=== PATIENT | female | born 1990 | race Caucasian/White ===

== ENCOUNTER 2023-10-25 10:58 | Emergency (ER) | payer OTHER, SELFPAY ==
[2023-10-25 11:09] VITALS: BP 132/83
[2023-10-25 11:24] LABS: % Basophils 0.3 % (0-2); % Eosinophils 0.9 % (0-6); % Immature Granulocytes 0.2 % (0-0.5); % Lymphocytes 16.5 % (20.5-51.1); % Monocytes 10.4 % (1.7-9.3); % Neutrophils 71.7 % (42.2-75.2); Absolute Eosinophils 0.1 10^3/uL (0-0.7); Absolute Monocytes 0.6 10^3/uL (0.1-0.6); Absolute Neutrophils 4.1 10^3/uL (1.4-6.5); Hematocrit 38.8 % (37.0-47.0); Hemoglobin 12.8 g/dL (12.0-16.0); Mean Corpuscular Hgb 24.6 pg (27.0-31.0); Mean Corpuscular Volume 74.6 fL (81.0-99.0); Mean Platelet Volume 9.9 fL (7.4-10.4); Nucleated Red Blood Cells % 0 %; Platelet Count 251 10^3/uL (130-400); Red Cell Dist. Width 14.4 % (11.5-14.5); White Blood Cell Count 5.8 10^3/uL (4.8-10.8)
[2023-10-25 11:38] LABS: HCG, Serum Qualitative Screen Negative
[2023-10-25 11:39] LABS: ALT (SGPT) 53 U/L (0-35); AST (SGOT) 37 U/L (14-36); Albumin 4.3 g/dl (3.5-5.0); Alkaline Phosphatase 70 U/L (38-126); Blood Urea Nitrogen 11 mg/dl (7-17); Calcium 9.2 mg/dl (8.4-10.2); Carbon Dioxide 22 mmol/L (22-30); Chloride 105 mmol/L (98-107); Glucose 120 mg/dl (70-99); Potassium 4.1 mmol/L (3.5-5.1); Sodium 135 mmol/L (135-145); Total Bilirubin 0.3 mg/dl (0.2-1.3); Total Protein 7.1 g/dl (6.3-8.2); eGFR > 60.00
[2023-10-25 12:03] LABS: COVID-19 Antigen Negative (Negative)
--- NOTE | 2023-10-25 12:11 | ED.GENMED ---
History of Present Illness
General
Chief Complaint: Fever
Source: patient and spouse
Time Seen by Provider: 10/25/23 11:59
History of Present Illness
History of Present Illness:
33-year-old female who states that she first developed a fever on Monday Tmax of 103.2 associated with discomfort along the right inferior aspect of the lateral costal area particularly with deep breath. No shortness of breath. She does note mild
nausea but denies vomiting. She is mildly anorexic. Earlier in the week she did have a headache but this is resolved. She denies photophobia or nuchal rigidity, cough. She has a slight sore throat. She denies lower abdominal pain, urinary
symptoms. Her bowel movements have been normal without blood. She denies rash. She states that her child had strep last week, otherwise no sick contacts.
Past History
Past History
ED Past Medical History: None
ED Past Surgical History: Gynecological
Social History
Tobacco: Non-smoker
Alcohol: Occasional
Drug: None
Personal:
Living: with family
Phy Exam
Physical Exam
Physical Exam:
GENERAL: Alert , in no apparent distress, nontoxic, overall well-appearing
EYE: pupils equal and reactive, no photophobia
NECK: Supple, no significant adenopathy, [place] no spontaneously and easily.
ENT: o/p clr, mmm, no exudate, no trismus, no drool, voice clear.
CARDIAC: Regular rate and rhythm .
LUNGS: Clear breath sounds bilaterally, no acute respiratory distress, no wheezes/rales/rhonchi, no rash noted on thorax, no swelling skin changes
ABDOMEN: Soft, without focal tenderness, no r/g, no cvat
NEUROLOGICAL: Alert and oriented, no focal neuro deficits
SKIN: Warm and dry, skin intact.
MUSCULOSKELETAL: No edema, well perfused.
PSYCH: Normal and appropriate interaction.
Course
Orders/Labs/Results
Orders:
Orders
10/25/23 11:12
Test Result ONCE
10/25/23 11:15
CMP [Comprehensive Metabolic Panel] Urgent
COVID-19 Antigen Urgent
Source: Nasal Swab
Complete Blood Count/With Diff Urgent
HCG, Serum Qualitative Screen Urgent
Influenza A+B Rapid Molecular Urgent
SONA Source: Nasal Swab
Specimen Description:
10/25/23 11:59
CR Chest - 2 Views Urgent
Comment:
Reason For Exam: fever, pain
10/25/23 12:45
Rapid Strep Group A Stat
SONA Source: Throat/Pharynx
Specimen Description:
Date Specimen was Collected: 10/25/23
Time Specimen was Collected: 12:36
10/25/23 13:06
Urinalysis Reflex To Culture Urgent
Date Specimen was Collected: 10/25/23
Time Specimen was Collected: 13:03
Urine Microscopic Reflex Cult Urgent
Abnormal Lab Results
10/25/23 10/25/23
11:15 13:06
MCV 74.6 L fL
(81.0-99.0)
MCH 24.6 L pg
(27.0-31.0)
Absolute Lymphs (auto) 1.0 L 10^3/uL
(1.2-3.4)
Lymphocytes % 16.5 L %
(20.5-51.1)
Monocytes % 10.4 H %
(1.7-9.3)
Glucose 120 H mg/dl
(70-99)
AST 37 H U/L
(14-36)
ALT 53 H U/L
(0-35)
Urine Ketones 1+ A
(Negative)
Ur Occult Blood Reflex 1+ A
(Negative)
10/25/23 11:15
10/25/23 11:15
Vital Signs
Initial and Last Documented VS:
Initial Vital Signs
Temp Pulse Resp BP Pulse Ox
99.7 F 115 16 132/83 99
10/25/23 11:09 10/25/23 11:09 10/25/23 11:09 10/25/23 11:09 10/25/23 11:09
Last Documented Vital Signs
Temp Pulse Resp BP Pulse Ox
99.7 F 115 16 132/83 99
10/25/23 11:09 10/25/23 11:09 10/25/23 11:09 10/25/23 11:09 10/25/23 11:09
Update Note
Update Note:
Patient presents to the Emergency Department with _fever and right lower thorax pain
Number and Complexity of Problems Addressed at the Encounter
� Chronic conditions affecting care:
� Acute Exacerbation and/or Progression of Chronic Illness:
� Differential Diagnosis includes: But not limited to nonspecific viral infection, COVID, flu, strep, pleurisy, pneumonia, etc.
Amount and/or Complexity of Data to be Reviewed and Analyzed
� I performed an independent evaluation of and my interpretation is:
EKG:
CT:
Xrays: cxr small R pleural effusion, can not r/o underlying pna
Laboratory Studies:
Other:
� Review of other/old records reveals:
� Clinical information was obtained by an independent historian: who is bedside
� Prescriptions/Medications Considered but not given:
� Further testing considered but not performed:
Risk of Complications and/or Morbidity or Mortality of Patient Management
� Social determinants of health affecting care:
� Discussion with other providers (PCP, Hospitalists, Consultants, etc):
� Escalation of care including admission/observation vs risk of discharge considered: pt eating food, smiling, nontoxic, in nad. R pleural effsuion noted, suspect cause of her pleuritic cp and fever, r/o underlying pna. WIll rx
for CAP, and recommend close f/u.
ED Attending Note
-
Portions of this chart may have been created with voice recognition software.� Occasional wrong word or��sound alike� substitutions may have occurred due to the inherent limitations of voice recognition software.
Discharge Plan
Departure
Patient Disposition: Home (Routine Discharge)
Date of Disposition: 10/25/23
Time of Disposition: 13:52
Patient with high blood pressure during this ER visit?: Yes
Condition: Good
Discharge Problem:
Fever
Instructions: Pleural effusion, Fever, Adult (DC), BLOOD PRESSURE
Prescriptions:
New
doxycycline hyclate 100 mg capsule
100 mg PO BID Qty: 20 0RF
Referrals:
Lenora Hollingsworth MD [Family Provider] - Follow up in 2-3 days
Activity Restrictions/Additional Instructions:
YOU HAVE A RIGHT SIDED PLEURAL EFFUSION,AND WE SUSPECT YOU MAY HAVE PNEUMONIA. TAKE THE ANTIBIOTICS DIRECTED. IF YOU DEVELOP INCREASING/NEW PAIN, TROUBLE BREAHTING, PERSISTENT FEVER, VOMITING, ABDOMINAL PAIN, OR OTHER WORRISOME SIGNS, GO TO THE
ER IMMEDIATELY!
Interventions
Interventions:
*Risk Screen - Suicide Last Done: 10/25/23 13:24
*General Assessment Last Done: 10/25/23 11:09
*Neglect/Abuse Screening Last Done: 10/25/23 13:24
*ED COVID-19 Vaccine History Last Done: 10/25/23 11:09
ED- Neurological Assessment Last Done: 10/25/23 13:25
ED-Skin Assessment Last Done: 10/25/23 13:25
Discharge Date and Time
Print Language: INDONESIAN
[2023-10-25 13:44] LABS: Urine Albumin Trace (Neg - Trace); Urine Bilirubin Negative (Negative); Urine Character Clear (Clear); Urine Color Yellow; Urine Glucose Negative (Negative); Urine Ketone 1+ (Negative); Urine Leukocyte Negative (Negative); Urine Nitrite Negative (Negative); Urine Occult Blood 1+ (Negative); Urine Specific Gravity 1.015 (<1.030); Urine Urobilinogen Negative (Neg - 1+)
[2023-10-25 14:05] LABS: Urine Red Blood Cell 0-2 /HPF (0-2)
[2023-10-25 14:06] LABS: Urine Mucus Few; Urine White Cell 0-2 /HPF (0-5)
[2023-10-25] MEDS: VIBRAMYCIN 100 MG PO (14:11)
[2023-10-25 14:21] VITALS: BP 121/81
[2023-10-25 14:23] VITALS: BP 121/81
== END 2023-10-25 14:24 | disposition home or self-care (01) ==
LOC: EMR 10:58
PROVIDERS: EMERGENCY PHYSICIAN Emergency Medicine; FAMILY PHYSICIAN Internal Medicine
DX: R50.9 Fever, unspecified (principal)
CPT/HCPCS: 99283; 71046; 80053; 81003; 81015; 84703; 85025; 87070; 87502; 87811; 87880

== ENCOUNTER 2023-10-26 11:12 | Emergency (ER) | payer OTHER, SELFPAY ==
[2023-10-26 11:43] VITALS: BMI 20.2
[2023-10-26 11:44] VITALS: BP 119/94
[2023-10-26 12:00] VITALS: BP 106/76
[2023-10-26 13:00] VITALS: BP 114/81
--- NOTE | 2023-10-26 13:01 | ED.GENMED ---
History of Present Illness
General
Chief Complaint: Breathing Problem
Time Seen by Provider: 10/26/23 11:32
History of Present Illness
History of Present Illness:
33-year-old female presenting with right lateral pleuritic chest pain with shortness of breath, cough, fever, and right sided headache. Pt states symptoms started on Saturday 10/21. Pt states she was evaluated in the emergency department yesterday,
diagnosed with right sided pneumonia and discharged with doxycycline. Pt states she took the first 2 doses as prescribed. Pt reports increased shortness of breath and gradual onset right sided headache last night which has since improved but
prompted ED arrival. Pt denies fever last night but notes she was sweaty. Pt states her son was diagnosed with strep recently. Otherwise pt denies lower extremity swelling, use of hormone products, history of DVT/PE, or recent long
travel/immobilization/surgery. Pt states symptoms spontaneously improved this morning with no further treatment.
Past History
Past History
ED Past Medical History: None
ED Past Surgical History: Gynecological
Social History
Tobacco: Non-smoker
Alcohol: Occasional
Drug: None
Personal:
Living: with family
Phy Exam
Physical Exam
Physical Exam:
General: Alert, no acute distress, well appearing eating wrap
Head: NCAT
Eyes: clear conjunctiva, EOMI, PERRLA
Neck: supple, FROM
Cardiac: regular rate and rhythm, no murmur
Lungs: clear to auscultation bilaterally. No wheezes, rales, or rhonchi. Speaking full unlabored sentences. No respiratory distress.
Chest wall: right lower posterolateral chest wall tenderness to palpation. No overlying rash
Abdomen: soft, nondistended nontender. No rebound or guarding. no CVA tenderness bilaterally
MSK: no lower extremity edema bilaterally. No deformity
Skin: warm, dry
Neuro: Alert and oriented x3. CN II-XII with no focal deficits. 5/5 strength bilateral upper and lower extremities. Normal finger to nose. Sensation intact.
Scores
PERC Rule Criteria
Age <50 years: Yes
HR <100 bpm: Yes
Room air oxygen sat >94%: Yes
History of DVT or PE: No
Recent trauma or surgery: No
Hemoptysis: No
Exogenous estrogen: No
Clinical signs suggestive of DVT: No
: No
Considered low risk for PE: Yes
PERC Score: 0
PE can be excluded by PERC: Yes
Course
Orders/Labs/Results
Orders:
Orders
10/26/23 12:59
0.9% Sodium Chloride 1000 ml [Nss] 1,000 ml IV BOLUS
Ketorolac [Toradol] 15 mg IV NOW STA
10/26/23 13:14
CBC/With Diff [Complete Blood Count/With Diff] Urgent
CMP [Comprehensive Metabolic Panel] Urgent
Abnormal Lab Results
10/26/23
13:14
MCV 75.5 L fL
(81.0-99.0)
MCH 24.9 L pg
(27.0-31.0)
MCHC 32.9 L g/dL
(33.0-37.0)
RDW 14.6 H %
(11.5-14.5)
Absolute Monos (auto) 0.7 H 10^3/uL
(0.1-0.6)
Lymphocytes % 20.3 L %
(20.5-51.1)
Monocytes % 10.8 H %
(1.7-9.3)
Glucose 120 H mg/dl
(70-99)
ALT 38 H U/L
(0-35)
10/26/23 13:14
10/26/23 13:14
Vital Signs
Initial and Last Documented VS:
Initial Vital Signs
Pulse Ox
100
10/26/23 11:43
Last Documented Vital Signs
Pulse Resp BP Pulse Ox
86 20 102/70 100
10/26/23 14:30 10/26/23 14:30 10/26/23 14:00 10/26/23 14:30
MDM/Problems Addressed
MDM/Problems Addressed:
Patient presents to the Emergency Department with headache, right pleuritic chest pain, cough, shortness of breath
Number and Complexity of Problems Addressed at the Encounter
� Chronic conditions affecting care:
� Acute Exacerbation and/or Progression of Chronic Illness:
� Differential Diagnosis includes: costochondritis, pneumonia. Low suspicion for PE given PERC negative. Low suspicion for meningitis given well appearing, FROM neck with no meningeal signs, neurologically intact, headache improved.
Amount and/or Complexity of Data to be Reviewed and Analyzed
� I performed an independent evaluation of and my interpretation is:
EKG:
CT:
Xrays:
Laboratory Studies: wBC 6.3, no left shift. LFTs improved from yesterday
Other:
� Review of other/old records reveals: pt seen and evaluated in ER yesterday. cXR showed small right pleural effusion. Patient started on doxycycline for possible CAP. Otherwise UA negative for UTI
� Clinical information was obtained by an independent historian:
� Prescriptions/Medications Considered but not given:
� Further testing considered but not performed:
Risk of Complications and/or Morbidity or Mortality of Patient Management
� Social Determinants of health affecting care:
� Discussion with other providers (PCP, Hospitalists, Consultants, etc):
� Escalation of care including admission/observation vs risk of discharge considered: 33yoF presenting with right pleuritic lower posterolateral chest wall pain starting last night. Reproducible tenderness to palpation. Pt just started on
doxycycline yesterday, only has taken 2 doses. No fever last night. Vitals stable. Labs reviewed, improving LFTs otherwise within normal limits. Discussed results with patient at bedside. Reports improvement in symptoms. Stable for discharge home
with PCP follow, advised to continue taking doxycycline as prescribed
*Critical Care Note
Total Time (30-74mins, 75-104mins- exclusive of procedures): Not Applicable
ED Attending Note
-
Portions of this chart may have been created with voice recognition software.� Occasional wrong word or��sound alike� substitutions may have occurred due to the inherent limitations of voice recognition software.
Discharge Plan
Departure
Patient Disposition: Home (Routine Discharge)
Date of Disposition: 10/26/23
Time of Disposition: 14:14
Patient with high blood pressure during this ER visit?: No
Discharge Problem:
Acute costochondritis
Instructions: Costochondritis
Prescriptions:
No Action
doxycycline hyclate 100 mg capsule
100 mg PO BID Qty: 20 0RF
Referrals:
Lenora Hollingsworth MD [Family Provider] -
Activity Restrictions/Additional Instructions:
Take Tylenol 975mg every 6 hours and/or ibuprofen 800mg every 8 hours with food as needed for pain
Continue taking doxycycline as prescribed
Follow up with primary care doctor in 1-2 days
Return to the emergency department for new/worsening symptoms
Interventions
Interventions:
*Risk Screen - Suicide Last Done: 10/26/23 11:43
*General Assessment Last Done: 10/26/23 11:43
*Neglect/Abuse Screening Last Done: 10/26/23 11:43
ED- Fall Risk Assessment Last Done: 10/26/23 11:43
*ED COVID-19 Vaccine History Last Done: 10/26/23 11:43
*Nursing Disposition Last Done: 10/26/23 14:41
ED- Cardiac Assessment Last Done: 10/26/23 11:43
ED- Pulmonary Assessment Last Done: 10/26/23 11:43
Discharge Date and Time
Discharge Date/Time: 10/26/23 14:42
Print Language: SWEDISH
[2023-10-26] MEDS: TORADOL 15 MG IV (13:14)
[2023-10-26] MEDS: NSS 1000 IV (13:15)
[2023-10-26 13:27] LABS: % Basophils 0.8 % (0-2); % Eosinophils 1.7 % (0-6); % Immature Granulocytes 0.3 % (0-0.5); % Lymphocytes 20.3 % (20.5-51.1); % Monocytes 10.8 % (1.7-9.3); % Neutrophils 66.1 % (42.2-75.2); Absolute Basophils 0.1 10^3/uL (0-0.2); Absolute Eosinophils 0.1 10^3/uL (0-0.7); Absolute Lymphocytes 1.3 10^3/uL (1.2-3.4); Absolute Monocytes 0.7 10^3/uL (0.1-0.6); Absolute Neutrophils 4.2 10^3/uL (1.4-6.5); Hemoglobin 12.5 g/dL (12.0-16.0); Mean Corp Hgb Conc. 32.9 g/dL (33.0-37.0); Mean Corpuscular Hgb 24.9 pg (27.0-31.0); Mean Corpuscular Volume 75.5 fL (81.0-99.0); Mean Platelet Volume 10.1 fL (7.4-10.4); Nucleated Red Blood Cells % 0 %; Platelet Count 276 10^3/uL (130-400); Red Blood Cell Count 5.03 10^6/uL (4.20-5.40); Red Cell Dist. Width 14.6 % (11.5-14.5); White Blood Cell Count 6.3 10^3/uL (4.8-10.8)
[2023-10-26 13:58] LABS: ALT (SGPT) 38 U/L (0-35); AST (SGOT) 25 U/L (14-36); Albumin 4.1 g/dl (3.5-5.0); Alkaline Phosphatase 70 U/L (38-126); Blood Urea Nitrogen 11 mg/dl (7-17); Calcium 9.2 mg/dl (8.4-10.2); Carbon Dioxide 25 mmol/L (22-30); Chloride 104 mmol/L (98-107); Estimated Creatinine Clearance 115 ml/min; Glucose 120 mg/dl (70-99); Potassium 4.5 mmol/L (3.5-5.1); Sodium 137 mmol/L (135-145); Total Bilirubin 0.4 mg/dl (0.2-1.3); Total Protein 7.1 g/dl (6.3-8.2); eGFR > 60.00
[2023-10-26 14:00] VITALS: BP 102/70
== END 2023-10-26 14:42 | disposition home or self-care (01) ==
LOC: EMR 11:12
PROVIDERS: EMERGENCY PHYSICIAN Emergency Medicine; FAMILY PHYSICIAN Internal Medicine
DX: M94.0 Chondrocostal junction syndrome [Tietze] (principal)
CPT/HCPCS: 99284; 96374; 96361; 80053; 85025

== ENCOUNTER → 2023-12-13 13:08 | Outpatient (REF) | payer OTHER, SELFPAY | LOC: RAD 13:08 | PROVIDERS: ATTENDING PHYSICIAN Internal Medicine Pulmonary Disease; FAMILY PHYSICIAN Internal Medicine | DX: R07.9 Chest pain, unspecified (principal); R93.89 Abnormal findings on diagnostic imaging of other specified body structures | CPT/HCPCS: 71046; 78582; A9540; A9567 ==

== ENCOUNTER → 2024-01-09 15:40 | Outpatient (REF) | payer OTHER, SELFPAY | LOC: RAD 15:40 | PROVIDERS: ATTENDING PHYSICIAN Internal Medicine Pulmonary Disease; FAMILY PHYSICIAN Internal Medicine | DX: J18.9 Pneumonia, unspecified organism (principal) | CPT/HCPCS: 71046 ==